=== PATIENT | male | born 1975 | race Two or more races ===

== ENCOUNTER 2016-10-17 07:37 | Emergency (ER) | payer SELFPAY ==
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
[2016-10-17 08:14] LABS: BASOPHIL # 0.1 K/uL (0.0-0.2); BASOPHIL % 0.7 %; EOSINOPHIL # 0.4 K/uL (0.0-0.5); HEMATOCRIT 49.4 % (37.0-53.0); HEMOGLOBIN 16.9 g/dL (12.0-17.0); IMMATURE GRANULOCYTE % 0.3 %; LYMPHOCYTE # 1.9 K/uL (0.8-4.0); LYMPHOCYTE % 27.5 %; MCH 30.1 pg (27.0-34.0); MCHC 34.2 gm/dL (32.0-36.5); MCV 87.9 fl (83.0-98.0); MONOCYTE # 0.6 K/uL (0.0-1.0); MONOCYTE % 9.1 %; MPV 9.6 fl (9.4-12.4); NEUTROPHIL # (ANC) 4.1 K/uL (1.4-9.0); NEUTROPHIL % 57.4 %; NRBC % 0 /100WBC (0-0.00); PLATELET COUNT 236 K/uL (150-450); RBC 5.62 M/uL (4.00-6.00); RDW-CV 12.7 % (11.9-14.6); WBC 7.1 K/uL (4.0-11.0)
[2016-10-17 08:25] LABS: INR - (THERAPEUTIC) 0.98 (0.92-1.07); PROTIME 10.3 SECONDS (9.8-11.4); PTT 28 SECONDS (25-32)
[2016-10-17 08:45] LABS: ALBUMIN 3.8 gm/dL (3.5-5.0); ALK PHOS 103 IU/L (33-138); ALT 21 IU/L (12-78); BLOOD UREA NITROGEN 14 mg/dL (6-24); CHLORIDE 108 mMol/L (96-110); CO2 23 mMol/L (22-32); CPK 109 IU/L (35-332); CREATININE 0.9 mg/dL (0.6-1.3); ESTIMATED GFR (MDRD EQUATION) > 60; SODIUM 141 mMol/L (135-145); TOTAL BILIRUBIN 0.4 mg/dL (0.0-1.5); TOTAL PROTEIN 7.6 g/dL (6.0-8.4)
[2016-10-17 09:01] LABS: ANION GAP 13.9 (10.0-19.0); AST 14 IU/L (10-40); MAGNESIUM 2.1 mg/dL (1.8-2.6)
[2016-10-17 09:02] LABS: POTASSIUM 3.9 mMol/L (3.7-5.1)
[2016-10-17 11:43] LABS: CPK 98 IU/L (35-332)
== END 2016-10-17 12:11 | disposition disaster alternative care site (69) ==
LOC: GMED 07:37
PROVIDERS: Emergency Medicine
DX: R07.89 Other chest pain (principal)
CPT/HCPCS: J1885; J2405; J2930